=== PATIENT | female | born 1975 | race Hispanic/Latino ===

== ENCOUNTER 2018-12-28 22:14 | Emergency (ER) | payer SELFPAY ==
[2018-12-28] MEDS ORDERED: Prochlorperazine 10 MG/2 ML VIAL ONE (22:55)
[2018-12-28] MEDS ORDERED: diphenhydrAMINE 50 MG/ML VIAL ONE (22:55)
[2018-12-28 23:17] LABS: Eosinophils 2 % (0-10); Hemoglobin 12.8 g/dL (12.0-16.0); Lymphocytes 52 % (21-51); MDiff Complete? YES; Mean Corpuscular HGB CONC 34.7 g/dL (32.0-36.0); Mean Corpuscular Hemoglobin 32.1 pg (27.0-31.0); Mean Corpuscular Volume 92.5 fL (78.0-98.0); Mean Platelet Volume 6.8 fL (7.4-10.4); Monocytes 7 % (0-10); Neutrophil 39 % (42-75); Platelet Count 333 thou/uL (130-400); RBC Distribution Width 11.5 % (11.5-14.5); Red Blood Cell (RBC) Count 3.99 mill/uL (4.20-5.40); White Blood Cell (WBC) Count 7.9 thou/uL (4.8-10.8)
[2018-12-28 23:19] LABS: Anion Gap 11 mmol/L (10-20); BUN (Urea Nitrogen) 13 mg/dL (7.0-18.7); Calc. Creatinine Clearance 0 mL/min (70-130); Calcium 8.8 mg/dL (7.8-10.44); Carbon Dioxide 28 mmol/L (22-29); Chloride 104 mmol/L (98-107); Estimated GFR-MDRD 72; Glucose 106 mg/dL (70-105); Sodium 139 mmol/L (136-145)
--- NOTE | 2018-12-28 23:24 | CT ---
CT HEAD WITHOUT CONTRAST: Date: 12/28/18 Multiple axial tomograms obtained through head without IV enhancement. INDICATION: Headache. History of HIV. FINDINGS: Ventricles have normal size and position. There is no evidence of intracranial hemorrhage or mass. No evidence of white matter abnormality. Sinuses are clear. IMPRESSION: No acute findings. POS: [facility]
== END 2018-12-28 23:29 | disposition home or self-care (01) ==
LOC: SCSER 22:14
DX: R51 Headache (principal); B20 Human immunodeficiency virus [HIV] disease; Z79.899 Other long term (current) drug therapy
CPT/HCPCS: 36415; 70450; 80048; 84484; 85025; 93005; 96374; 96375; J0780; J1200

== ENCOUNTER 2022-03-03 19:41 | Emergency (ER) | payer SELFPAY ==
[2022-03-03 19:57] LABS: Bilirubin Negative (Negative); Blood, Urine Negative (Negative); Clarity Clear (Clear); Glucose, Urine (Dipstick) Normal (Negative); Ketone, Urine Negative (Negative); Leukocyte Negative Leu/uL (Negative); Nitrite Negative (Negative); Protein, Urine (Dipstick) Negative (Neg-Trace); Specific Gravity, Urine 1.002 (1.002-1.036); Urobilinogen Normal mg/dL (Less than 2); pH, Urine 5.5 (5.0-9.0)
== END 2022-03-03 22:11 | disposition home or self-care (01) ==
LOC: ERS 19:41
DX: N76.0 Acute vaginitis (principal); B20 Human immunodeficiency virus [HIV] disease; Z79.899 Other long term (current) drug therapy
CPT/HCPCS: 81003; 87086; 99283

== ENCOUNTER 2023-06-02 19:44 | Emergency (ER) | payer SELFPAY ==
[2023-06-02] MEDS ORDERED: Ketorolac Tromethamine 30 MG/ML VIAL ONE (20:42)
== END 2023-06-02 21:02 | disposition home or self-care (01) ==
LOC: ERS 19:44
DX: M25.531 Pain in right wrist (principal); M25.521 Pain in right elbow; F17.290 Nicotine dependence, other tobacco product, uncomplicated
CPT/HCPCS: 96372; 99283; J1885

== ENCOUNTER 2023-08-23 15:20 | Emergency (ER) | payer OTHER, SELFPAY ==
[2023-08-23 16:10] LABS: SARS-CoV-2 NAA Rapid Test Not Detected (NotDetected)
[2023-08-23] MEDS ORDERED: Dexamethasone 10 MG/ML VIAL ONE (16:18)
[2023-08-23] MEDS ORDERED: Acetaminophen 500 MG TAB ONE (16:18)
[2023-08-23] MEDS ORDERED: Bicillin LA 1.2 MILLION UNITS/2 ML SYRINGE ONE (16:22)
== END 2023-08-23 16:45 | disposition home or self-care (01) ==
LOC: ERS 15:20
DX: J02.9 Acute pharyngitis, unspecified (principal); B34.9 Viral infection, unspecified; B20 Human immunodeficiency virus [HIV] disease; F17.290 Nicotine dependence, other tobacco product, uncomplicated
CPT/HCPCS: 87081; 87430; 96372; 99283; J0561; J1100

== ENCOUNTER 2024-08-12 07:42 | Emergency (ER) | payer OTHER ==
[2024-08-12] MEDS ORDERED: Ibuprofen 200 MG TAB ONE (08:11)
== END 2024-08-12 08:42 | disposition home or self-care (01) ==
LOC: ERS 07:42
DX: J11.00 Influenza due to unidentified influenza virus with unspecified type of pneumonia (principal); B20 Human immunodeficiency virus [HIV] disease; F17.290 Nicotine dependence, other tobacco product, uncomplicated
CPT/HCPCS: 71045; 87428